=== PATIENT | female | born 1970 | race Asian ===

== ENCOUNTER → 2020-02-13 | Day surgery (SDC) | payer OTHER ==
--- NOTE | 2020-02-13 11:27 | RAD REPORT ---
EXAM DESCRIPTION: US - Guided FNA Non Breast - 02/13/2020 10:54 am CLINICAL HISTORY: BILAT THY NODULES Bilateral thyroid nodule FNA procedure COMPARISON: No comparisons FINDINGS: Preoperative diagnosis: Bilateral thyroid nodules. Post operative diagnosis: Same. Conscious Sedation: None Fluoroscopy time: None Contrast used: None Estimated blood loss: Minimal Specimens:On the right 5 x 25 gauge FNA specimens. On the left 5 x 25 gauge FNA specimens. The neck was prepped and draped in the usual sterile fashion. 1% lidocaine was infiltrated into the s ubcutaneous tissues for local anesthesia. Real time ultrasound scanning of the thyroid gland demonstr ated bilateral thyroid nodules, larger on the left. Under ultrasound guidance, first the 15 mm nodule on the right was subjected to FNA procedure under ultrasound guidance. Following this, the larger 2. 4 cm nodule on the left was subjected to FNA procedure under ultrasound guidance. 25 gauge FNA needle s x5 were utilized on each nodule. All material was sent to pathology for analysis. The patient jannet ated the procedure well. IMPRESSION: Successful bilateral thyroid FNA procedure x2 as detailed.
--- NOTE | 2020-02-16 13:28 | RAD REPORT ---
EXAM DESCRIPTION: US - Guided FNA Non Breast - 02/13/2020 10:49 am CLINICAL HISTORY: BILAT THY NODULES Bilateral thyroid nodule FNA procedure COMPARISON: No comparisons FINDINGS: Preoperative diagnosis: Bilateral thyroid nodules . Post operative diagnosis: Same. Conscious Sedation: None Fluoroscopy time: None Contrast used: None Estimated blood loss: Minimal Specimens: On the right 5 x 25 gauge FNA specimens. On the left 5 x 25 gauge FNA specimens. The neck was prepped and draped in the usual sterile fashion. 1% lidocaine was infiltrated into the s ubcutaneous tissues for local anesthesia. Real time ultrasound scanning of the thyroid gland demonstr ated bilateral thyroid nodules, larger on the left . Under ultrasound guidance, first the 15 mm nodul e on the right was subjected to FNA procedure under ultrasound guidance. Following this, the larger 2 .4 cm nodule on the left was subjected to FNA procedure under ultrasound guidance. 25 gauge FNA needl es x5 were utilized on each nodule. All material was sent to pathology for analysis. The patient krystle rated the procedure well. IMPRESSION: Successful bilateral thyroid FNA procedure x2 as detailed.
== END | disposition home or self-care (01) ==
LOC: FNA 09:33
PROVIDERS: ATTEND Nurse Practitioner Family
PROC: 0G9K3ZX Drainage of Thyroid Gland, Percutaneous Approach, Diagnostic (ICD-10-PCS; principal; 2020-02-13)
PROC: BG44ZZZ Ultrasonography of Thyroid Gland (ICD-10-PCS; 2020-02-13)
DX: E04.2 Nontoxic multinodular goiter (principal); R22.1 Localized swelling, mass and lump, neck
CPT/HCPCS: 88162; 88305